=== PATIENT | female | born 1990 | race Caucasian/White ===

== ENCOUNTER 2017-09-15 10:26 | Outpatient (CLI) | payer OTHER ==
[2017-09-15 12:25] LABS: ADD MAN DIFF? NO
[2017-09-15 12:27] LABS: WHITE BLOOD COUNT 7.3 10^3/ul (4.8-10.8)
[2017-09-15 12:27] LABS: BASOPHILS % 0.3 % (0.0-2.0); EOSINOPHILS # 0.1 10^3/ul (0.0-0.5); EOSINOPHILS % 0.7 % (0.0-7.0); HEMATOCRIT 28.5 % (37.0-47.0); HEMOGLOBIN 9.8 g/dl (12.0-16.0); LYMPHOCYTES # 1.7 10^3/ul (0.8-2.9); LYMPHOCYTES % 23.3 % (15.0-51.0); MEAN CORPUSCULAR HGB CONC 34.4 g/dl (32.0-37.0); MEAN CORPUSCULAR VOLUME 87.2 fl (82.0-101.0); MEAN PLATELET VOLUME 10.3 fl (7.4-10.4); MONOCYTE # 0.4 10^3/ul (0.3-0.9); MONOCYTES % 5.6 % (0.0-11.0); NEUTROPHIL # 5.1 10^3/ul (1.6-7.5); NEUTROPHILS % 69.8 % (39.0-77.0); PLATELET COUNT 230 10^3/UL (140-415); RED BLOOD COUNT 3.27 10^6/ul (4.20-5.40); RED CELL DISTRIBUTION WIDTH 13.2 % (11.5-14.5)
== END 2017-09-15 13:05 | disposition home or self-care (01) ==
LOC: OBT 10:26 → L-D 10:28 → OBT 13:05
DX: O99.012 Anemia complicating pregnancy, second trimester (principal); Z3A.23 23 weeks gestation of pregnancy
CPT/HCPCS: 85025

== ENCOUNTER 2017-10-08 20:26 | Outpatient (CLI) | payer OTHER ==
[2017-10-08 22:32] LABS: ADD UMIC YES; UR ASCORBIC ACID 20 mg/dL (NEGATIVE); UR BILIRUBIN (Dip) NEGATIVE (NEGATIVE); UR BLOOD (Dip) 2+ mg/dL (NEGATIVE); UR CLARITY SLIGHTLY CLOUDY (CLEAR); UR COLOR YELLOW (YELLOW); UR GLUCOSE (Dip) NEGATIVE (NEGATIVE); UR KETONES (Dip) NEGATIVE (NEGATIVE); UR LEUKOCYTE ESTERASE (Dip) NEGATIVE Leu/ul (NEGATIVE); UR NITRITE (Dip) NEGATIVE (NEGATIVE); UR RBC > 182 /HPF (0-5); UR SPECIFIC GRAVITY (Dip) 1.025 (1.003-1.030); UR TOTAL PROTEIN (Dip) 1+ mg/dl (NEGATIVE); UR UROBILINOGEN (Dip) 1+ mg/dL (NEGATIVE); UR WBC 6 /HPF (0-5)
== END 2017-10-08 23:13 | disposition home or self-care (01) ==
LOC: OBT 20:26 → L-D 20:27 → OBT 23:13
DX: O71.82 Other specified trauma to perineum and vulva (principal); N93.0 Postcoital and contact bleeding; Z3A.26 26 weeks gestation of pregnancy
CPT/HCPCS: 76815; 76817; 76818; 81001

== ENCOUNTER 2018-01-11 22:28 | Outpatient (CLI) | payer OTHER ==
[2018-01-12 00:07] LABS: ADD MAN DIFF? NO
[2018-01-12 00:10] LABS: BASOPHILS % 0.4 % (0.0-2.0); EOSINOPHILS # 0.1 10^3/ul (0.0-0.5); EOSINOPHILS % 1.4 % (0.0-7.0); HEMATOCRIT 30.2 % (37.0-47.0); LYMPHOCYTES # 2.7 10^3/ul (0.8-2.9); LYMPHOCYTES % 33.3 % (15.0-51.0); MEAN CORPUSCULAR HEMOGLOBIN 28.7 pg (29.0-33.0); MEAN CORPUSCULAR HGB CONC 33.1 g/dl (32.0-37.0); MEAN CORPUSCULAR VOLUME 86.5 fl (82.0-101.0); MEAN PLATELET VOLUME 10.9 fl (7.4-10.4); MONOCYTE # 0.6 10^3/ul (0.3-0.9); MONOCYTES % 7.3 % (0.0-11.0); NEUTROPHIL # 4.6 10^3/ul (1.6-7.5); NEUTROPHILS % 57.2 % (39.0-77.0); PLATELET COUNT 213 10^3/UL (140-415); RED BLOOD COUNT 3.49 10^6/ul (4.20-5.40); RED CELL DISTRIBUTION WIDTH 13.6 % (11.5-14.5)
[2018-01-12 00:26] LABS: ADD UMIC YES; UR ASCORBIC ACID NEGATIVE (NEGATIVE); UR BACTERIA FEW /HPF (NONE SEEN); UR BILIRUBIN (Dip) NEGATIVE (NEGATIVE); UR BLOOD (Dip) NEGATIVE (NEGATIVE); UR CLARITY SLIGHTLY CLOUDY (CLEAR); UR COLOR YELLOW (YELLOW); UR GLUCOSE (Dip) NEGATIVE (NEGATIVE); UR KETONES (Dip) NEGATIVE (NEGATIVE); UR LEUKOCYTE ESTERASE (Dip) NEGATIVE Leu/ul (NEGATIVE); UR MUCUS MANY /HPF (NONE SEEN); UR NITRITE (Dip) NEGATIVE (NEGATIVE); UR RBC 4 /HPF (0-5); UR SPECIFIC GRAVITY (Dip) 1.033 (1.003-1.030); UR SQUAMOUS EPITHELIAL CELL FEW /HPF (FEW); UR TOTAL PROTEIN (Dip) 1+ mg/dl (NEGATIVE); UR UROBILINOGEN (Dip) 1+ mg/dL (NEGATIVE); UR WBC 5 /HPF (0-5)
[2018-01-12 00:31] LABS: URIC ACID 4.4 mg/dl (3.1-7.9)
[2018-01-12 00:32] LABS: ALANINE AMINOTRANSFERASE 22 IU/L (13-69); ALBUMIN 3.1 g/dl (3.3-4.9); ALBUMIN/GLOBULIN RATIO 0.88; ALKALINE PHOSPHATASE 158 IU/L (42-121); ANION GAP 10 (8-16); ASPARTATE AMINO TRANSFERASE 18 IU/L (15-46); BILIRUBIN,INDIRECT 0.3 mg/dl (0-1.1); BILIRUBIN,TOTAL 0.3 mg/dl (0.2-1.3); BLOOD UREA NITROGEN 9 mg/dl (7-20); CALCIUM 8.8 mg/dl (8.4-10.2); CARBON DIOXIDE 23 mmol/L (21-31); CHLORIDE 107 mmol/L (97-110); CREATININE 0.61 mg/dl (0.44-1.00); GLUCOSE 105 mg/dl (70-220); POTASSIUM 3.6 mmol/L (3.5-5.1); SODIUM 136 mmol/L (135-144); TOTAL PROTEIN 6.6 g/dl (6.1-8.1)
[2018-01-12 01:12] LABS: HIV 1&2 ANTIBODY NEGATIVE (NEGATIVE)
[2018-01-12 01:34] LABS: INR 1.02; PROTIME 13.5 Sec (11.9-14.9); PT RATIO 1.1
[2018-01-12 01:35] LABS: PARTIAL THROMBOPLASTIN TIME 28.3 Sec (25.0-35.0)
[2018-01-12 02:43] LABS: HEPATITIS B SURFACE ANTIGEN NEGATIVE (NEGATIVE)
[2018-01-12 16:00] LABS: RAPID PLASMA REAGIN NONREACTIVE (NR)
[2018-01-20 14:06] LABS: RUBELLA ANTIBODY - IGG 3.01 index; RUBELLA ANTIBODY - IGM <20.00 AU/mL
== END 2018-01-12 03:02 | disposition home or self-care (01) ==
LOC: OBT 22:28 → L-D 22:29
DX: O62.9 Abnormality of forces of labor, unspecified (principal); Z3A.39 39 weeks gestation of pregnancy
CPT/HCPCS: 76815; 76818; 80053; 81001; 84560; 85025; 85610; 85730; 86592; 86703; 86762; 86850; 86900; 86901; 87340

== ENCOUNTER 2018-01-12 11:52 | Inpatient (IN) | payer OTHER ==
[2018-01-12] MEDS ORDERED: CARBOPROST 250 MCG INJ IM ×2 (12:30→17:00)
[2018-01-12] MEDS ORDERED: METHYLERGONOVINE 0.2 MG INJ IM ×2 (12:30→17:00)
[2018-01-12] MEDS ORDERED: OXYTOCIN 30 UNITS/LR 500 ML IV ×3 (12:30→17:00)
[2018-01-12] MEDS: LACTATED RINGER'S 1,000 ML IV (12:55)
[2018-01-12 13:24] LABS: ADD MAN DIFF? NO
[2018-01-12 13:30] LABS: WHITE BLOOD COUNT 7.8 10^3/ul (4.8-10.8)
[2018-01-12 13:30] LABS: BASOPHILS % 0.4 % (0.0-2.0); EOSINOPHILS # 0.1 10^3/ul (0.0-0.5); HEMATOCRIT 31.5 % (37.0-47.0); HEMOGLOBIN 10.6 g/dl (12.0-16.0); LYMPHOCYTES # 2.4 10^3/ul (0.8-2.9); LYMPHOCYTES % 30.6 % (15.0-51.0); MEAN CORPUSCULAR HEMOGLOBIN 29.3 pg (29.0-33.0); MEAN CORPUSCULAR HGB CONC 33.7 g/dl (32.0-37.0); MEAN PLATELET VOLUME 11.3 fl (7.4-10.4); MONOCYTE # 0.5 10^3/ul (0.3-0.9); MONOCYTES % 6.5 % (0.0-11.0); NEUTROPHIL # 4.8 10^3/ul (1.6-7.5); NEUTROPHILS % 61.2 % (39.0-77.0); PLATELET COUNT 206 10^3/UL (140-415); RED BLOOD COUNT 3.62 10^6/ul (4.20-5.40); RED CELL DISTRIBUTION WIDTH 13.6 % (11.5-14.5)
[2018-01-12 13:46] LABS: PARTIAL THROMBOPLASTIN TIME 26.1 Sec (25.0-35.0); PROTIME 14.4 Sec (11.9-14.9); PT RATIO 1.1
[2018-01-12 14:00] LABS: AMPHETAMINE/METHAMPHETAMINE Negative (NEGATIVE); BARBITURATES Negative (NEGATIVE); BENZODIAZEPINES Negative (NEGATIVE); CANNABINOIDS Negative (NEGATIVE); COCAINE Negative (NEGATIVE); OPIATES Negative (NEGATIVE)
[2018-01-12 14:16] LABS: HEPATITIS B SURFACE ANTIGEN NEGATIVE (NEGATIVE)
[2018-01-12 14:26] LABS: HIV 1&2 ANTIBODY NEGATIVE (NEGATIVE)
[2018-01-12] MEDS ORDERED: BUPIVACAINE 0.75%/DEXT (SPINAL) 2 ML INJ (14:49)
[2018-01-12] MEDS ORDERED: morphine SULFATE/PF (10 MG/10 ML) INJ (14:49)
[2018-01-12] MEDS ORDERED: PHENYLephrine 10 MG INJ (15:04)
[2018-01-12] MEDS: CEFAZOLIN 2 GM/50 ML (PMX) 50 ML IV (15:15)
[2018-01-12] MEDS: MISOPROSTOL 200 MCG TAB PR (15:30)
[2018-01-12] MEDS ORDERED: MIDAZOLAM 1 MG/ML 2 ML INJ (15:31)
[2018-01-12] MEDS ORDERED: OXYTOCIN 10 UNIT INJ (15:39)
[2018-01-12 16:00] LABS: RAPID PLASMA REAGIN NONREACTIVE (NR)
[2018-01-12] MEDS ORDERED: DIPHENHYDRAMINE 50 MG INJ (16:16)
[2018-01-12] MEDS ORDERED: LACTATED RINGER'S 1,000 ML IV ×2 (16:27→16:32)
[2018-01-12] MEDS ORDERED: DIPHENHYDRAMINE 50 MG INJ IV (16:30)
[2018-01-12] MEDS ORDERED: NALOXONE (0.4 MG/ML) INJ IV (16:30)
[2018-01-12] MEDS ORDERED: EPHEDrine SULFATE 50 MG/5 ML SYG IV (16:30)
[2018-01-12] MEDS ORDERED: HYDROmorphONE 0.5 MG/0.5 ML SYG IV ×2 (16:30)
[2018-01-12] MEDS ORDERED: ZOLPIDEM 5 MG TAB PO (16:30)
[2018-01-12] MEDS ORDERED: ONDANSETRON 4 MG INJ IV ×3 (16:30→17:00)
[2018-01-12] MEDS ORDERED: NALBUPHINE HCL (10 MG/1 ML) INJ IV (16:30)
[2018-01-12] MEDS ORDERED: MEPERIDINE 25 MG INJ IV (16:30)
[2018-01-12] MEDS ORDERED: OXYCODONE/ACETAMINOPHEN (5/325) TAB PO (17:00)
[2018-01-12] MEDS ORDERED: BISACODYL 10 MG SUPP PR (17:00)
[2018-01-12] MEDS ORDERED: ACETAMINOPHEN 325 MG TAB PO (17:00)
[2018-01-12] MEDS ORDERED: MAGNESIUM HYDROXIDE 30ML CUP PO (17:00)
[2018-01-12] MEDS ORDERED: MISOPROSTOL 200 MCG TAB PR (17:00)
[2018-01-12] MEDS: KETOROLAC 30 MG INJ IV (17:28)
[2018-01-12] MEDS: OXYTOCIN 30 UNITS/LR 500 ML IV (18:08)
[2018-01-13] MEDS: CEFAZOLIN 1 GM/50 ML (PMX) 50 ML IV ×4 (01:00→20:03)
[2018-01-13] MEDS: LACTATED RINGER'S 1,000 ML IV ×4 (04:18→20:18)
[2018-01-13] MEDS: KETOROLAC 30 MG INJ IV (08:41)
[2018-01-13 09:22] LABS: ADD MAN DIFF? NO
[2018-01-13 09:41] LABS: WHITE BLOOD COUNT 8.5 10^3/ul (4.8-10.8)
[2018-01-13 09:41] LABS: BASOPHILS % 0.2 % (0.0-2.0); EOSINOPHILS # 0.1 10^3/ul (0.0-0.5); EOSINOPHILS % 0.7 % (0.0-7.0); HEMATOCRIT 26.9 % (37.0-47.0); HEMOGLOBIN 8.9 g/dl (12.0-16.0); LYMPHOCYTES # 1.6 10^3/ul (0.8-2.9); LYMPHOCYTES % 19.3 % (15.0-51.0); MEAN CORPUSCULAR HEMOGLOBIN 28.8 pg (29.0-33.0); MEAN CORPUSCULAR HGB CONC 33.1 g/dl (32.0-37.0); MEAN CORPUSCULAR VOLUME 87.1 fl (82.0-101.0); MEAN PLATELET VOLUME 11.3 fl (7.4-10.4); MONOCYTE # 0.6 10^3/ul (0.3-0.9); MONOCYTES % 6.7 % (0.0-11.0); NEUTROPHIL # 6.2 10^3/ul (1.6-7.5); NEUTROPHILS % 72.9 % (39.0-77.0); PLATELET COUNT 162 10^3/UL (140-415); RED BLOOD COUNT 3.09 10^6/ul (4.20-5.40); RED CELL DISTRIBUTION WIDTH 13.7 % (11.5-14.5)
[2018-01-13 10:03] LABS: ALANINE AMINOTRANSFERASE 17 IU/L (13-69); ALBUMIN 2.6 g/dl (3.3-4.9); ALBUMIN/GLOBULIN RATIO 0.83; ALKALINE PHOSPHATASE 126 IU/L (42-121); ANION GAP 9 (8-16); ASPARTATE AMINO TRANSFERASE 24 IU/L (15-46); BILIRUBIN,INDIRECT 0.5 mg/dl (0-1.1); BILIRUBIN,TOTAL 0.5 mg/dl (0.2-1.3); BLOOD UREA NITROGEN 6 mg/dl (7-20); CALCIUM 8.5 mg/dl (8.4-10.2); CARBON DIOXIDE 25 mmol/L (21-31); CHLORIDE 103 mmol/L (97-110); CREATININE 0.62 mg/dl (0.44-1.00); GLUCOSE 89 mg/dl (70-220); POTASSIUM 4.5 mmol/L (3.5-5.1); SODIUM 132 mmol/L (135-144); TOTAL PROTEIN 5.7 g/dl (6.1-8.1)
[2018-01-13] MEDS: LANOLIN 7 GM TUBE TOP (18:24)
[2018-01-13] MEDS: OXYCODONE/ACETAMINOPHEN (5/325) TAB PO (18:26)
[2018-01-13] MEDS: IBUPROFEN 600 MG TAB PO (23:31)
[2018-01-14] MEDS: LACTATED RINGER'S 1,000 ML IV ×3 (04:18→20:18)
[2018-01-14] MEDS: IBUPROFEN 600 MG TAB PO ×3 (06:44→18:30)
[2018-01-14] MEDS: SENNA/DOCUSATE NA (8.6MG/50MG) TAB PO (10:12)
[2018-01-15] MEDS: LACTATED RINGER'S 1,000 ML IV ×2 (04:18→12:06)
[2018-01-15] MEDS: IBUPROFEN 600 MG TAB PO ×2 (04:56→15:05)
[2018-01-20 14:06] LABS: RUBELLA ANTIBODY - IGG 3.25 index; RUBELLA ANTIBODY - IGM <20.00 AU/mL
== END 2018-01-15 18:20 | disposition home or self-care (01) | DRG 766 ==
LOC: OBT 11:52 → L-D 11:52 → OBT 11:52 → L-D 12:12 → PP1 18:47
PROVIDERS: Obstetrics & Gynecology Gynecology
PROC: 10D00Z1 Extraction of Products of Conception, Low, Open Approach (ICD-10-PCS; principal; 2018-01-12 15:30)
PROC: 3E033VJ Introduction of Other Hormone into Peripheral Vein, Percutaneous Approach (ICD-10-PCS; 2018-01-12 15:30)
DX: O48.0 Post-term pregnancy (principal); O34.211 Maternal care for low transverse scar from previous cesarean delivery; Z3A.40 40 weeks gestation of pregnancy; Z37.0 Single live birth
CPT/HCPCS: 80053; 80307; 85025; 85610; 85730; 86592; 86703; 86762; 87340; 99464

== ENCOUNTER 2018-04-18 01:07 | Emergency (ER) | payer OTHER ==
[2018-04-18] MEDS: IBUPROFEN 800 MG TAB PO (01:44)
== END 2018-04-18 03:41 | disposition home or self-care (01) ==
LOC: E/R 01:07
DX: S60.212A Contusion of left wrist, initial encounter (principal); W01.0XXA Fall on same level from slipping, tripping and stumbling without subsequent striking against object, initial encounter; Y92.9 Unspecified place or not applicable
CPT/HCPCS: 29125; 73110-LT; 81025; 99283-25